=== PATIENT | female | born 1940 | race Hispanic/Latino ===

== ENCOUNTER → 2018-09-04 | Outpatient (CLI) | payer MEDICARE, OTHER ==
[~2018-09-04] MED LIST: REGADENOSON 0.4 MG/5 ML PF SYG IVP SCH
[2018-09-04] MEDS: REGADENOSON 0.4 MG/5 ML PF SYG IVP ONE (11:59)
== END | disposition home or self-care (01) ==
LOC: SHCH 09:13
PROVIDERS: ATTEND Internal Medicine Cardiovascular Disease
DX: R06.00 Dyspnea, unspecified (principal); I10 Essential (primary) hypertension; E78.5 Hyperlipidemia, unspecified
CPT/HCPCS: 78452; 93017; 96374; A9500 ×2; J2785 ×2

== ENCOUNTER 2018-12-24 11:54 | Observation (INO) | payer OTHER ==
[2018-12-23 11:11] VITALS: BP 131/65
[2018-12-23 11:13] LABS: BASOPHILS % (AUTO) 0.4 % (0.0-5.0); EOSINOPHILS % (AUTO) 0.6 % (0.0-8.0); HEMATOCRIT 40.8 % (36-48); LYMPHOCYTES % (AUTO) 21.6 % (21.0-51.0); MEAN CORPUSCULAR HEMOGLOBIN 30.2 pg (27.0-33.0); MEAN CORPUSCULAR HGB CONC 33.1 g/dL (32.0-36.0); MEAN CORPUSCULAR VOLUME 91.3 fL (79-99); MONOCYTES % (AUTO) 4.7 % (3.0-13.0); NEUTROPHILS % (AUTO) 72.7 % (40.0-77.0); NUCLEATED RED BLOOD CELLS 0.1 % (0.0-0.19); PLATELET COUNT (AUTO) 170 K/uL (130-400); RED BLOOD CELL COUNT(AUTO) 4.47 MIL/uL (4.00-5.50); RED CELL DISTRIBUTION WIDTH 14.9 % (11.0-15.5); WHITE BLOOD COUNT (AUTO) 4.5 K/uL (4.8-10.8)
[2018-12-23 11:27] LABS: APPEARANCE,URINE Clear (CLEAR); BILIRUBIN,URINE Negative (NEGATIVE); COLOR,URINE Yellow (YELLOW); GLUCOSE, URINE (UA) Negative (NEGATIVE); KETONES,URINE Negative (NEGATIVE); LEUKOCYTE ESTERASE ,URINE Moderate (NEGATIVE); NITRATE,URINE Negative (NEGATIVE); OCCULT BLOOD,URINE Negative (NEGATIVE); PROTEIN,URINE Negative (NEGATIVE); UROBILINOGEN,URINE 0.2 mg/dL (0.2-1.0)
[2018-12-23 11:31] LABS: CREATININE 0.7 mg/dL (0.5-1.5); POTASSIUM 4.7 mmol/L (3.5-5.1)
[2018-12-23 11:39] LABS: INR 0.98 (0.85-1.15); PROTHROMBIN TIME 10.3 SEC (9.6-11.6)
[2018-12-23 11:44] LABS: BACTERIA,URINE Rare /HPF (None Seen); SQUAMOUS EPITHELIAL CELL,UR Rare /HPF (0-2); WBC,URINE 0-1 /HPF (0-1)
[2018-12-23 12:08] LABS: PARTIAL THROMBOPLASTIN TIME 27.8 SEC (26.3-35.5)
[~2018-12-24] VITALS: Ht 160 cm; Wt 70.8 kg
[2018-12-24] VITALS (13 sets, daily range): BP systolic 120–140; BP diastolic 59–105
--- NOTE | 2018-12-24 12:20 | NUR ---
BOTH PATIENT AND DAUGHTER RECEIVED INSTRUCTIONS ON PRE AND POST CATH INSTRUCTIONS ON BED REST POST PROCEDURE TO PREVENT BLEEDING FROM PUNCTURE SITE. BOTH VERBALIZED UNDERSTANDING AND AGREED TO COMPLY.
[2018-12-24] MEDS ORDERED: MONT10TA24 PO (12:31)
[2018-12-24] MEDS ORDERED: ginkgo biloba PO (12:31)
[2018-12-24] MEDS ORDERED: MULT-1192 PO (12:31)
[2018-12-24] MEDS ORDERED: FISH1CAP49 PO (12:31)
[2018-12-24] MEDS ORDERED: PRED5DRO17 OD (12:46)
[2018-12-24] MEDS ORDERED: GABA-531 PO (12:46)
[2018-12-24] MEDS ORDERED: LORA10TA7 PO (12:46)
[2018-12-24] MEDS ORDERED: FLUTICAS IH (12:46)
[2018-12-24] MEDS ORDERED: ASPI-1197 PO (12:46)
[2018-12-24] MEDS ORDERED: CHOL500050 PO (12:46)
[2018-12-24] MEDS ORDERED: SALMETEROL IH (12:46)
[2018-12-24] MEDS ORDERED: ATOR40TA71 PO (12:46)
[2018-12-24] MEDS ORDERED: albuterol sulfate IH (12:46)
[2018-12-24] MEDS ORDERED: MOXIFLOXACIN OU (12:46)
[2018-12-24] MEDS ORDERED: ALEN70TA10 PO (12:46)
[2018-12-24] MEDS ORDERED: CARB15DR OP (12:46)
[2018-12-24] MEDS ORDERED: SODIUM CHLORIDE 0.9% 1000ML 1,000 ML IV ONE (12:49)
--- NOTE | 2018-12-24 16:59 | NUR ---
PATIENT WAS TAKEN TO STORYBOARD ARTIST IN NO DISTRESS VIA HOSPITAL BED. FAMILY IN ROOM.
[2018-12-24] MEDS ORDERED: BIVALIRUDIN 250 MG/VIAL IV ONE (17:02)
[2018-12-24] MEDS ORDERED: NITROGLYCERIN 5 MG/ML 10 ML VIAL IV ONE (17:03)
[2018-12-24] MEDS ORDERED: IOHEXOL 350 MG/ML 100ML INFUS..BTL IV ONE (17:03)
[2018-12-24] MEDS ORDERED: LIDOCAINE HCL-MPF 2% 10ML AMP IJ ONE (17:03)
[2018-12-24] MEDS ORDERED: IOHEXOL-350 50ML VIAL IV ONE (17:03)
--- NOTE | 2018-12-24 18:30 | NUR ---
PATIENT ARRIVED FROM AUDIO PRODUCTION INSTRUCTOR. AWAKE AND ALERT, VOICES NO COMPLAINTS. RIGHT GROIN WITH PRECLOSE DRESSING CLEAN DRY AND INTACT. NO BLEEDING NOTED. PEDAL PULSES PALPABLE. NO COMPLAINTS.
[2018-12-25 04:21] VITALS: BP 122/53
[2018-12-25 08:00] VITALS: BP 133/67
--- NOTE | 2018-12-25 12:15 | NUR ---
PATIENT GIVEN DISCHARGE ORDERS AND VERBALIZED UNDERSTANDING, IV REMOVED CATHETER INTACT PRESSURE HELD TILL BLEEDING STOPPED THEN SITE DRESSED. TELEMETRY UNIT REMOVED AFTER CALL UNIT TO LET THEM KNOW PATIENT BEING DISCHARGE. PATIENT DAUGHTER SAID SHE WOULD MAKE SURE MOTHER FOLLOW-UP WITH HER PCP IN 1-2 WEEKS AND STATED THAT THEY HAS WALK IN APPOINTMENTS. NO QUESTIONS OR CONCERNS AT THIS TIME, PATIENT LEFT VIA WHEELCHAIR WITH FAMILY AT SIDE FOR LOBBY THEN HOME.
== END 2018-12-25 12:05 | disposition home or self-care (01) ==
LOC: DAH 11:54 → 3BH 11:55 → DAH 11:55
PROVIDERS: ADMIT Internal Medicine Cardiovascular Disease; ATTEND Internal Medicine Cardiovascular Disease
DX: R94.39 Abnormal result of other cardiovascular function study (principal); I25.118 Atherosclerotic heart disease of native coronary artery with other forms of angina pectoris; F15.90 Other stimulant use, unspecified, uncomplicated; I10 Essential (primary) hypertension; J45.909 Unspecified asthma, uncomplicated; E78.5 Hyperlipidemia, unspecified; Z79.82 Long term (current) use of aspirin; Z79.899 Other long term (current) drug therapy; Z98.890 Other specified postprocedural states; Z98.49 Cataract extraction status, unspecified eye; Z79.2 Long term (current) use of antibiotics; Z82.49 Family history of ischemic heart disease and other diseases of the circulatory system
CPT/HCPCS: 36415; 71045; 80048; 81001; 85025; 85610; 85730; 93005; 93458; A4606; C1760; C1894; G0378 ×24; J1644; J3490 ×2; J7030; Q9965; Q9967 ×2; J0583